=== PATIENT | female | born 1965 | race Two or more races ===

== ENCOUNTER 2020-10-29 21:21 | Emergency (ER) | payer MEDICAID ==
--- NOTE | 2020-10-29 22:07 | EDM.PDOC ---
ED HPI GENERAL MEDICAL PROBLEM - General Chief Complaint: Cardiovascular Problem Stated Complaint: SOB Time Seen by Provider: 10/29/20 21:39 Left Abdomen Pain Score (Numeric/FACES): 8 - Related Data Allergies Allergy/AdvReac Type Severity Reaction Status Date / Time No Known Allergies Allergy Verified 10/29/20 21:48 Past Medical History Cardiovascular History: Reports: Heart Failure, Hypertension Respiratory History: Reports: Bronchitis, Recurrent, Pneumonia, Recurrent Gastrointestinal History: Reports: GERD, Pancreatitis Genitourinary History: Reports: UTI, Recurrent Musculoskeletal History: Reports: Arthritis Neurological History: Reports: Other (See Below) Other Neuro History: headaches weekly Psychiatric History: Reports: Anxiety, Learning Disability, Other (See Below) - Infectious Disease History Infectious Disease History: Reports: Shingles - Past Surgical History GI Surgical History: Reports: Cholecystectomy Female Surgical History: Reports: Hysterectomy, Other (See Below) Other Female Surgeries/Procedures: right mastectomy Musculoskeletal Surgical History: Reports: Other (See Below) Other Musculoskeletal Surgeries/Procedures:: knee withh pins Course - Vital Signs Last Recorded V/S: Last Vital Signs Temp 36.4 C 10/29/20 21:41 Pulse 112 H 10/29/20 21:41 Resp 20 10/29/20 21:41 BP 140/103 H 10/29/20 21:41 Pulse Ox 88 L 10/29/20 21:41 Departure - Departure Sepsis Event Note (ED) - Evaluation Sepsis Screening Result: No Definite Risk - Focused Exam Vital Signs: Vital Signs Temp Pulse Resp BP Pulse Ox 10/29/20 21:41 36.4 C 112 H 20 140/103 H 88 L
[2020-10-29] MEDS ORDERED: Iopamidol 612 MG/ML 100 ML Bottle IVPUSH ONE (22:11)
[2020-10-29] MEDS ORDERED: Sodium Chloride 0.9% 10 ML Syringe FLUSH PRN (22:11)
[2020-10-29] MEDS ORDERED: Diatrizoate Meglumine/Diatrizoate Sodium 37% 120 ML Bottle PO ONE (22:11)
--- NOTE | 2020-10-29 22:12 | EDM.PDOC ---
ED HPI GENERAL MEDICAL PROBLEM - General Chief Complaint: Cardiovascular Problem Stated Complaint: SOB Time Seen by Provider: 10/29/20 21:39 Source of Information: Reports: Patient, Family () History Limitations: Reports: Other (Poor historian, often stating "I don't know". Most of history per her .) - History of Present Illness INITIAL COMMENTS - FREE TEXT/NARRATIVE: Mrs. Cadet is a 55-year-old woman who is now brought to the ED by her , with a complaint of 3 days of dyspnea and 2 days of left-sided abdominal pain. The patient also reports that she has dysuria, but is unable to see how long she has been experiencing it. No recent fever, nausea, vomiting, constipation, or diarrhea. The patient's tells me that the patient gets similar symptoms about once a month, for the past 2.5 to 3 years, due to congestive heart failure. He states that when she gets fluid overloaded, the fluid fills up her body, causing pain. He states that she takes torsemide twice a day, with her most recent dose at this morning, but none tonight. He states that, typically, the patient winds up getting admitted for a few days, to be treated with IV Lasix. Here in the ED, the patient's initial BP is found to be mildly elevated at 140/103, with tachycardia of 112 bpm. She is afebrile, initially saturating 88% on room air, but up to 98% on room air during my evaluation. She does not appear to be in any acute distress. Prior to 3 days ago, the patient denies having a recent fever, chills, sore throat, ear pain, nasal or sinus congestion, cough, dyspnea, chest pain, palpitations, nausea, vomiting, constipation, diarrhea, abdominal pain, urinary symptoms, recent weight gain or weight loss, recent bloody bowel movements or black bowel movements, recent joint aches, headaches, or rashes. I reviewed the PMHx/PSHx/SocHx, which was reviewed with the patient and her by the RN. The patient and her are moving, either from [place] to [place], or the other way around. Left Abdomen Pain Score (Numeric/FACES): 8 - Related Data Allergies Allergy/AdvReac Type Severity Reaction Status Date / Time No Known Allergies Allergy Verified 10/29/20 21:48 Past Medical History Cardiovascular History: Reports: Heart Failure, Hypertension Gastrointestinal History: Reports: GERD, Pancreatitis Genitourinary History: Reports: Chronic Renal Insuffiency Musculoskeletal History: Reports: Osteoarthritis Psychiatric History: Reports: Anxiety, Learning Disability, Other (See Below) (Dissociative identity disorder) - Infectious Disease History Infectious Disease History: Reports: Shingles - Past Surgical History GI Surgical History: Reports: Cholecystectomy Female Surgical History: Reports: Hysterectomy Musculoskeletal Surgical History: Reports: Other (See Below) (Right knee pinning ) Oncologic Surgical History: Reports: Biopsy of Breast (benign), Mastectomy ED ROS GENERAL - Review of Systems Review Of Systems: Comprehensive ROS is negative, except as noted in HPI. ED EXAM, GENERAL - Physical Exam Exam: See Below Exam Limited By: No Limitations General Appearance: Alert, WD/WN, No Apparent Distress Eye Exam: Bilateral Eye: EOMI, Normal Inspection Ears: Normal External Exam, Hearing Grossly Normal Nose: Normal Inspection Throat/Mouth: Normal Inspection, Normal Lips, Normal Voice, No Airway Compromise Head: Atraumatic, Normocephalic Neck: Normal Inspection, Full Range of Motion Respiratory/Chest: No Respiratory Distress, No Accessory Muscle Use, Crackles (mild, bibasilar). No: Decreased Breath Sounds, Rhonchi, Wheezing, Stridor, Prolonged Expiration Cardiovascular: Normal Peripheral Pulses, Regular Rate, Rhythm, No Gallop, No JVD, No Murmur, No Rub Peripheral Pulses: 3+: Radial (L), Radial (R) GI/Abdominal: Normal Bowel Sounds, Soft, No Organomegaly, No Distention, No Abnormal Bruit, No Mass, Tender (generalized, non-focal) Back Exam: Normal Inspection, Full Range of Motion, NT Extremities: Normal Range of Motion, Normal Capillary Refill, Pedal Edema Neurological: Alert, No Motor/Sensory Deficits Skin Exam: Warm, Dry, Intact, Normal Color, No Rash Course - Vital Signs Last Recorded V/S: Last Vital Signs Temp 36.4 C 10/29/20 21:41 Pulse 112 H 10/29/20 21:41 Resp 20 10/29/20 21:41 BP 140/103 H 10/29/20 21:41 Pulse Ox 88 L 10/29/20 21:41 - Orders/Labs/Meds Orders: Active Orders 24 hr Category Date Time Status EKG Documentation Completion [RC] STAT Care 10/29/20 22:04 Active Abdomen Pelvis w Cont [CT] Stat Exams 10/29/20 22:02 Ordered Chest 2V [CR] Stat Exams 10/29/20 22:03 Ordered CBC WITH MANUAL DIFF [HEME] Stat Lab 10/29/20 22:50 Received COMPREHENSIVE METABOLIC PN,CMP [CHEM] Stat Lab 10/29/20 22:50 Received D-DIMER QUANTITATIVE [COAG] Stat Lab 10/29/20 22:05 Ordered DRUG SCREEN, URINE [URCHEM] Stat Lab 10/29/20 22:30 Received LACTATE SEPSIS W/ REFLEX [CHEM] Stat Lab 10/29/20 22:50 Received LIPASE [CHEM] Stat Lab 10/29/20 22:50 Received MAGNESIUM [CHEM] Stat Lab 10/29/20 22:50 Received PRO B-TYPE NATRIUR PEPT,BNPPRO [CHEM] Stat Lab 10/29/20 22:50 Received TROPONIN I [CHEM] Stat Lab 10/29/20 22:50 Received TSH [CHEM] Stat Lab 10/29/20 22:50 Received UA W/MICROSCOPIC [URIN] Stat Lab 10/29/20 22:35 Received Sodium Chloride 0.9% [Saline Flush] Med 10/29/20 22:11 Active 10 ml FLUSH ONETIME PRN Medication Orders Sodium Chloride (Sodium Chloride 0.9% 10 Ml Syringe) 10 ml FLUSH ONETIME PRN PRN Reason: Keep Vein Open Labs: Laboratory Tests 10/29/20 Range/Units 22:24 Puncture Site Rt radial ABG pH 7.37 (7.35-7.45) ABG pCO2 33.8 L (35.0-45.0) mmHg ABG pO2 64.0 L (80.0-100.0) mmHg ABG HCO3 19.1 L (22.0-26.0) meq/L ABG O2 Saturation 88.2 L (96.0-97.0) % ABG Base Excess -4.9 L (-2-2.0) Sacha Test Positive A-a Gradient 44 mmHg O2 Delivery Device Room air FiO2 21.00 (21.00-100.00) % Meds: Medications Generic Name Dose Route Start Last Admin Trade Name Freq PRN Reason Stop Dose Admin Sodium Chloride 10 ml 10/29/20 22:11 Sodium Chloride 0.9% 10 Ml Syringe FLUSH ONETIME PRN Keep Vein Open Discontinued Medications Generic Name Dose Route Start Last Admin Trade Name Rei PRN Reason Stop Dose Admin Diatrizoate Meglum/Diatrizoate Sod 40 ml 10/29/20 22:11 Diatrizoate Meglumine/Diatrizoate Sodium 37% 120 Ml Bottle PO 10/29/20 22:12 ONETIME ONE Iopamidol 100 ml 10/29/20 22:11 Iopamidol 612 Mg/Ml 100 Ml Bottle IVPUSH 10/29/20 22:12 ONETIME ONE - Re-Assessments/Exams Free Text/Narrative Re-Assessment/Exam: 10/29/20 22:08 As above, the patient has had dyspnea for the past 3 days, then left-sided abdominal pain since yesterday. She also reports dysuria, for an unknown duration of time. No recent fever, nausea, vomiting, or constipation. The patient's states that she gets similar symptoms about once a month for the past 2.5 to 3 years, due to an exacerbation of CHF. She takes torsemide twice a day, with her most recent dose this morning, but none this evening. Her initial BP is found to be mildly elevated, with modest tachycardia. Her initial SpO2 was 88% on room air, but went up to 98% without treatment during my evaluation. On examination, the patient has mild bibasilar crackles, and reports tenderness to her entire abdomen, not just the left side. I have ordered a rather extensive work-up, including numerous blood tests, an ABG, a urinalysis by quick-catheter, a chest x-ray, a CT of the abdomen and pelvis with oral and IV contrast, and an ECG. The patient's wanted to know if I am going to admit the patient. I explained that it is too early to tell, without having any test results. The patient's became upset, insisting that I tell him. I again had to explain to him that it is impossible for me to determine at this stage if the patient is going to require admission to the hospital or not. 10/29/20 23:09 Notified by Rosaura SIMMS that the patient and her want to leave AMA. 10/29/20 23:10 Notified by Rosaura SIMMS that they left the ED without waiting for discharge instructions. Departure - Departure Time of Disposition: 23:10 Disposition: Against Medical Advice 07 Condition: Good Clinical Impression: Abdominal pain, Dyspnea, Dysuria - Discharge Information *PRESCRIPTION DRUG MONITORING PROGRAM REVIEWED*: Not Applicable *COPY OF PRESCRIPTION DRUG MONITORING REPORT IN PATIENT ISIDRO: Not Applicable Referrals: PCP,None [Primary Care Provider] - Forms: ED Department Discharge Sepsis Event Note (ED) - Evaluation Sepsis Screening Result: No Definite Risk - Focused Exam Vital Signs: Vital Signs Temp Pulse Resp BP Pulse Ox 10/29/20 21:41 36.4 C 112 H 20 140/103 H 88 L - My Orders Last 24 Hours: My Active Orders 10/29/20 22:02 Abdomen Pelvis w Cont [CT] Stat 10/29/20 22:03 Chest 2V [CR] Stat 10/29/20 22:04 EKG Documentation Completion [RC] STAT 10/29/20 22:05 D-DIMER QUANTITATIVE [COAG] Stat 10/29/20 22:11 Sodium Chloride 0.9% [Saline Flush] 10 ml FLUSH ONETIME PRN 10/29/20 22:30 DRUG SCREEN, URINE [URCHEM] Stat 10/29/20 22:35 UA W/MICROSCOPIC [URIN] Stat 10/29/20 22:50 CBC WITH MANUAL DIFF [HEME] Stat COMPREHENSIVE METABOLIC PN,CMP [CHEM] Stat LACTATE SEPSIS W/ REFLEX [CHEM] Stat LIPASE [CHEM] Stat MAGNESIUM [CHEM] Stat PRO B-TYPE NATRIUR PEPT,BNPPRO [CHEM] Stat TROPONIN I [CHEM] Stat TSH [CHEM] Stat - Assessment/Plan Last 24 Hours: My Active Orders 10/29/20 22:02 Abdomen Pelvis w Cont [CT] Stat 10/29/20 22:03 Chest 2V [CR] Stat 10/29/20 22:04 EKG Documentation Completion [RC] STAT 10/29/20 22:05 D-DIMER QUANTITATIVE [COAG] Stat 10/29/20 22:11 Sodium Chloride 0.9% [Saline Flush] 10 ml FLUSH ONETIME PRN 10/29/20 22:30 DRUG SCREEN, URINE [URCHEM] Stat 10/29/20 22:35 UA W/MICROSCOPIC [URIN] Stat 10/29/20 22:50 CBC WITH MANUAL DIFF [HEME] Stat COMPREHENSIVE METABOLIC PN,CMP [CHEM] Stat LACTATE SEPSIS W/ REFLEX [CHEM] Stat LIPASE [CHEM] Stat MAGNESIUM [CHEM] Stat PRO B-TYPE NATRIUR PEPT,BNPPRO [CHEM] Stat TROPONIN I [CHEM] Stat TSH [CHEM] Stat
== END 2020-10-29 23:09 | disposition left against medical advice (07) ==
LOC: JD.ED 21:21
DX: R10.9 Unspecified abdominal pain (principal); R06.02 Shortness of breath; R30.0 Dysuria; Z90.710 Acquired absence of both cervix and uterus
CPT/HCPCS: 36415; 36600; 82803; 93005; 99285; Q9963